=== PATIENT | female | born 1955 | race African-American/Black ===

== ENCOUNTER 2019-04-01 20:34 | Emergency (ER) | payer MEDICARE ==
[~2019-04-01] VITALS: Ht 165.1 cm; Wt 84.0 kg
[2019-04-01] MEDS ORDERED: KETOROLAC 60MG/2ML VIAL IM ONE (23:00)
[2019-04-01] MEDS ORDERED: DIAZEPAM 5 MG TABLET PO ONE (23:00)
[2019-04-01 23:10] LABS: BASOPHILS % 0.6 % (0.0-2.0); EOSINOPHILS % 1.1 % (0.0-5.0); HEMATOCRIT. 42.2 % (36.0-48.0); HEMOGLOBIN. 14.3 g/dL (12.0-16.0); LYMPHOCYTES % 31.1 % (20.0-50.0); MEAN CORPUSCULAR HEMOGLOBIN 32.1 pg (28.0-32.0); MEAN CORPUSCULAR VOLUME 94.6 fL (81.0-99.0); MEAN PLATELET VOLUME 8.2 fl (7.4-10.4); NEUTROPHILS % 59.2 % (40.0-76.0); PLATELET 213 x1000/uL (130-400); RED BLOOD CELL COUNT 4.46 mill/uL (4.2-5.4); RED CELL DISTRIBUTION WIDTH 14.6 % (11.6-14.6)
[2019-04-01 23:16] LABS: CHLORIDE 106 mEq/L (98-107)
[2019-04-02 00:10] VITALS: BP 130/71
== END 2019-04-02 00:11 | disposition home or self-care (01) ==
LOC: ER 20:34
DX: M19.012 Primary osteoarthritis, left shoulder (principal); R07.89 Other chest pain
CPT/HCPCS: 36415; 73030; 80048; 84484; 85025; 93005; 96372; 99284; J1885

== ENCOUNTER 2023-08-23 18:52 | Emergency (ER) | payer MEDICARE, MEDICAID ==
[~2023-08-23] VITALS: Ht 165.1 cm; Wt 79.0 kg
[2023-08-23 19:06] VITALS: O2SAT 97
[2023-08-23] MEDS: ACETAMINOPHEN 325MG TABLET PO ONE (19:45)
[2023-08-23 20:02] LABS: CLARITY URINE TURBID (CLEAR); COLOR URINE YELLOW (YELLOW); GLUCOSE URINE NEGATIVE (NEGATIVE); KETONES URINE NEGATIVE (NEGATIVE); LEUKOCYTE ESTERASE URINE NEGATIVE (NEGATIVE); NITRITE URINE NEGATIVE (NEGATIVE); OCCULT BLOOD URINE NEGATIVE (NEGATIVE); PH URINE 6.5 (4.5-8.0); PROTEIN URINE TRACE (NEGATIVE); SPECIFIC GRAVITY URINE 1.025 (1.005-1.030)
[2023-08-23 20:33] LABS: BASOPHILS % 0.6 % (0.0-2.0); EOSINOPHILS % 1.7 % (0.0-5.0); HEMATOCRIT. 41.7 % (36.0-48.0); HEMOGLOBIN. 13.9 g/dL (12.0-16.0); LYMPHOCYTES % 23.2 % (20.0-50.0); MEAN CORPUSCULAR HGB CONC 33.3 g/dL (31.0-37.0); MEAN CORPUSCULAR VOLUME 96.1 fL (81.0-99.0); MEAN PLATELET VOLUME 8.4 fl (7.4-10.4); MONOCYTES % 10.5 % (2.0-8.0); PLATELET 228 x1000/uL (130-400); RED BLOOD CELL COUNT 4.34 mill/uL (4.2-5.4); RED CELL DISTRIBUTION WIDTH 14.9 % (11.6-14.6); WHITE BLOOD COUNT 7.9 x1000/uL (4.5-11.0)
[2023-08-23 20:33] LABS: BACTERIA URINE 2+; RBC URINE 0-2 /hpf (0-2); SQUAMOUS EPITHELIAL CELL URINE 2+ /lpf (RARE/1+)
[2023-08-23 20:34] LABS: WBC URINE 0-2 /hpf (0-2)
[2023-08-23 20:45] LABS: ALANINE AMINOTRANSFERASE 23 IU/L (10-49); ALBUMIN 4.3 g/dL (3.2-4.8); ASPARTATE AMINOTRANSFERASE 29 IU/L (<34); BILIRUBIN TOTAL 0.6 mg/dL (0.1-1.0); CALCIUM 9.5 mg/dL (8.7-10.4); CARBON DIOXIDE 27 mEq/L (21-32); CHLORIDE 107 mEq/L (98-107); GLUCOSE 90 mg/dL (70-105); PROTEIN TOTAL 7.9 g/dL (6.0-8.3); SODIUM 140 mEq/L (136-145); TROPONIN I HIGH SENSITIVITY 11 ng/L (3.0-34); UREA NITROGEN BLOOD 17 mg/dL (9-23)
[2023-08-23 21:19] VITALS: BP 155/81; PULSE 81; RESP 16; TEMP 98.6
== END 2023-08-23 21:20 | disposition home or self-care (01) ==
LOC: ER 18:52
DX: R06.02 Shortness of breath (principal); R05.9 Cough, unspecified; M79.10 Myalgia, unspecified site; Z20.822 Contact with and (suspected) exposure to COVID-19
CPT/HCPCS: 36415; 71045; 80053; 81003; 83880; 84484; 85025; 87426; 87804; 93971; 99284